=== PATIENT | female | born 1980 | race Caucasian/White ===

== ENCOUNTER 2018-10-28 10:49 | Outpatient (CLI) | payer OTHER, SELFPAY ==
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
== END 2018-10-28 11:09 ==
PROVIDERS: PCP Nurse Practitioner Adult Health; Visit Provider Podiatrist
DX: M79.672 Pain in left foot (principal)
CPT/HCPCS: 73630

== ENCOUNTER 2018-11-19 10:03 | Outpatient (CLI) | payer OTHER, SELFPAY ==
--- NOTE | 2018-11-19 09:37 | DI.RAD_ITS ---
SYMPTOM/DIAGNOSIS: RT MEDIAL AND ANTERIOR KNEE PAIN RIGHT KNEE: 11/19 Three views were obtained. No bony or soft tissue abnormality seen. Merchant view shows normal patellofemoral alignment.
== END 2018-11-19 10:23 ==
PROVIDERS: PCP Nurse Practitioner Adult Health; Visit Provider Student in an Organized Health Care Education/Training Program
DX: M25.561 Pain in right knee (principal)
CPT/HCPCS: 73562

== ENCOUNTER 2018-11-26 01:17 | Outpatient (CLI) | payer OTHER, SELFPAY ==
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
== END 2018-11-26 01:37 ==
PROVIDERS: PCP Nurse Practitioner Adult Health; Visit Provider Student in an Organized Health Care Education/Training Program
DX: M25.561 Pain in right knee (principal); M25.461 Effusion, right knee
CPT/HCPCS: 73721

== ENCOUNTER 2018-12-31 17:02 | Outpatient (REF) | payer OTHER, SELFPAY ==
--- NOTE | 2018-12-31 14:50 | PAPFT_PTH ---
PATIENT: Tania Krause LOC: [facility] U#:[id number] AGE/SX: 38/F ROOM: RE12/31/[address]: Ángela Richard NP : 1980 BED: DIS: 12/31/2018 SPEC #: [id number] RECD: 12/31/18 18:19 STATUS: SAL REMaximiliano #: [id number] ELIOT: 12/31/18 14:[address]: Ángela Richard NP DEPT: [facility] Cytology RECD BY: Flory Morales ENTERED: 12/31/18 18:19 SP TYPE: PAPFT OTHR DR: Tania Perez APRN Tissues: 1 - CX/ENDOCX FOR PAP SMEARS Procedures: PAP THIN PREP/UVM Screening HPV DNA PROBE Comments: [id number]
== END 2018-12-31 17:22 ==
LOC: LBN 17:02
PROVIDERS: PCP Nurse Practitioner Adult Health; Visit Provider Nurse Practitioner Women's Health
DX: Z12.4 Encounter for screening for malignant neoplasm of cervix (principal); Z11.51 Encounter for screening for human papillomavirus (HPV)
CPT/HCPCS: 88142; 87624

== ENCOUNTER 2019-03-19 13:18 | Outpatient (CLI) | payer OTHER, SELFPAY ==
[2019-03-19 13:19] VITALS: BP 120/80; PULSE 66; RESP 16; TEMP 37.2; O2SAT 100
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
[2019-03-19 14:15] VITALS: PULSE 70; O2SAT 100
[2019-03-19] MEDS: Omnipaque 240 MG/ML 50 ML BTL IJ (14:27)
[2019-03-19] MEDS: Bupivacaine 0.5% Pres-Free 10 ML VIAL IJ (14:28)
--- NOTE | 2019-03-19 15:12 | DI.RAD_ITS ---
EXAM: XR PAIN CLINIC FLUORO JOINT IN CLINICAL HISTORY: DX: Osteoarthritis of right knee TECHNIQUE: Fluoroscopy was provided for the referring physician for guidance with performing injecti on procedure. COMPARISON: No exams were available for comparison FINDINGS: Please see procedure note for details. Fluoro Time: 26.4 seconds
== END 2019-03-19 13:38 ==
PROVIDERS: PCP Nurse Practitioner Adult Health; Visit Provider Internal Medicine
DX: M25.561 Pain in right knee (principal); M22.2X1 Patellofemoral disorders, right knee
CPT/HCPCS: 64640 ×3; 77002; Q9967

== ENCOUNTER → 2019-04-16 09:48 | Outpatient (CLI) | payer OTHER, SELFPAY ==
[2019-04-16 09:57] VITALS: BP 115/79; PULSE 81; RESP 16; TEMP 37.2; O2SAT 98
--- NOTE | 2019-04-16 10:03 | PDOC.PAIN ---
Pain Clinic Procedure Note Procedure Note Procedure Note: Right Knee Radiofrequency with Coolief Machine PROCEDURE NOTE Date of Service: April 16, 2019 Patient: FRANKLIN MORAN Provider: Chaitanya Ferreira MD Pre Operative Diagnosis: patellofemoral syndrome of left knee Post Operative Diagnosis: same as above PROCEDURE: 1. Superolateral genicular branch from the vastus lateralis 2. Superomedial genicular branch from the vastus medialis 3. Inferomedial genicular branch from the saphenous nerve FRANKLIN MORAN was brought into brought to the procedure room and placed on the exam table in a comfortable supine position. The place for needle placement was obtained by manual palpation with radiographic confirmation. The sterile field was prepared by chloroprep and sterile drapes. Local anesthesia superficial and deep was provided by local infiltration of ~6cc of 1% lidocaine. A 17g 50 mm radiofrequency introducer needle with a 4mm active tip was placed overlying the [right/left] knee joint and using fluoroscopic guidance the needle was advanced to a bony endpoint on the superiolateral portion of the femoral condyle of the right knee. A second needle was advanced to a bony endpoint on the superiomedial portion of the femoral condyle. A third needle was then placed over the inferiomedial portion of the tibial condyle until a bony endpoint was met. Attempted aspiration yielded no blood. Lateral x-ray views showed all the needles at 50% depth of the femur and tibia. Motor stimulation was tested ad 2.0 volts with no leg movement. Images were saved in AP and lateral. 2cc of 2% lidocaine was slowly injected at each site. Then a radiofrequency ablation of each of the geniculate nerves were done at 80 degrees Celsius for 2 minutes and 30 seconds each. Post lesioning, a mixture of 40mg/ml of depomedrol mixed with 2cc of 0.5% Bupivocaine was injected, ~1cc of solution at each injection site. The needles were withdrawn. POST PROCEDURE EVALUATION: patient tolerated procedure well. Needed total of 1mg of IV Versed and 75mcg of IV Fentanyl. Follow up plans and appointments were discussed with the FRANKLIN . Post procedure instruction was given as documented in nursing documentation and having met discharge criteria, FRANKLIN was discharged from the [facility]. COMMENTS: No complications. F/U with our office as needed. I personally performed this entire procedure. Chaitanya Ferreira MD Attending Physician
[2019-04-16] MEDS: Lactated Ringers 1,000 ML 80 ML IV (10:15)
[2019-04-16] MEDS: Midazolam 2 MG/2 ML VIAL IVP (10:28)
[2019-04-16] MEDS: fentaNYL 100 MCG/2 ML VIAL IVP ×3 (10:28→10:54)
[2019-04-16 10:56] VITALS: BP 121/85; PULSE 76; RESP 18; O2SAT 100
--- NOTE | 2019-04-16 11:03 | DI.RAD_ITS ---
EXAM: XR PAIN CLINIC FLUORO JOINT IN CLINICAL HISTORY: Dx: Right patellofemoral syndrome TECHNIQUE: Realtime digital imaging was performed. Fluoro time: 35.3 sec, 1.67 mGy COMPARISON: No exams were available for comparison FINDINGS: Fluoroscopy was utilized by Dr. Ferreira during the performance of a genicular radiofrequency ablation. Pl ease refer to the procedure report for complete details.
[2019-04-16] MEDS: Bupivacaine 0.5% Pres-Free 10 ML VIAL IJ (11:15)
[2019-04-16] MEDS: Lidocaine 2% Pres-Free 5 ML VIAL IJ (11:16)
[2019-04-16] MEDS: methylPREDNISolone ACETATE 40 MG/ML VIAL IM (11:17)
== END ==
PROVIDERS: PCP Nurse Practitioner Adult Health; Visit Provider Internal Medicine
DX: M22.2X1 Patellofemoral disorders, right knee (principal)
CPT/HCPCS: 64640; 77002; J1030; J2250; J3010

== ENCOUNTER 2019-11-01 02:06 | Outpatient (CLI) | payer OTHER, SELFPAY ==
[2019-11-01 09:49] LABS: ALT 63 U/L (14-59); AST 44 U/L (15-37); Albumin 3.9 g/dL (3.4-5.0); Alkaline Phosphatase 108 U/L (46-116); Anion Gap 7.6 mmol/L (3-11); BUN 7 mg/dL (7-18); Bilirubin, Total 0.3 mg/dL (0.2-1.0); CO2 28.4 mmol/L (21.0-32.0); CREATININE 0.76 mg/dL (0.55-1.02); Calcium 8.9 mg/dL (8.5-10.1); Chloride 105 mmol/L (98-107); Glucose 97 mg/dL (74-106); Potassium 4.3 mmol/L (3.5-5.1); Sodium 141 mmol/L (136-145); TSH (W/Ref FT4) 1.51 uIU/mL (0.36-3.74); Total Protein 6.8 g/dL (6.4-8.2)
[2019-11-04 05:21] LABS: Vitamin D 25 Total 47.5 ng/ml (30-100)
== END 2019-11-01 02:26 ==
PROVIDERS: PCP Nurse Practitioner Adult Health; Visit Provider Nurse Practitioner Adult Health
DX: G43.909 Migraine, unspecified, not intractable, without status migrainosus (principal); Z51.81 Encounter for therapeutic drug level monitoring; F32.9 Major depressive disorder, single episode, unspecified
CPT/HCPCS: 36415; 80053; 82306; 84443

== ENCOUNTER 2019-12-26 04:40 | Outpatient (CLI) | payer OTHER, SELFPAY ==
[2019-12-26 15:20] LABS: ALT 21 U/L (14-59); AST 14 U/L (15-37); Albumin 3.6 g/dL (3.4-5.0); Alkaline Phosphatase 79 U/L (46-116); Bilirubin, Direct 0.07 mg/dL (0.00-0.20); Bilirubin, Total 0.2 mg/dL (0.2-1.0); Total Protein 6.7 g/dL (6.4-8.2)
== END 2019-12-26 05:00 ==
PROVIDERS: PCP Nurse Practitioner Adult Health; Visit Provider Nurse Practitioner Adult Health
DX: R74.0 Nonspecific elevation of levels of transaminase and lactic acid dehydrogenase [LDH] (principal)
CPT/HCPCS: 36415; 80076

== ENCOUNTER 2020-01-16 09:47 | Outpatient (CLI) | payer OTHER, SELFPAY ==
--- NOTE | 2020-01-16 06:00 | DI.RAD_ITS ---
EXAM: XR PAIN CLINIC FLUORO JOINT IN CLINICAL HISTORY: Dx:Osteoarthritis of Right knee TECHNIQUE: 2D and realtime digital imaging was performed. CONTRAST MATERIAL: Refer to procedure report. COMPARISON: No exams were available for comparison FINDINGS: Fluoroscopy was provided for Dr. Bang during the performance of a radiofrequency ablation. Please r efer to the procedure report for complete details. Fluoro time: 81 seconds IMPRESSION:
[2020-01-16 10:09] VITALS: BP 117/79; PULSE 79; RESP 16; TEMP 37.3; O2SAT 97
[2020-01-16] MEDS: Lactated Ringers 1,000 ML 80 ML IV (10:47)
[2020-01-16] MEDS: fentaNYL 100 MCG/2 ML VIAL IVP ×3 (10:52→11:12)
[2020-01-16] MEDS: Midazolam 2 MG/2 ML VIAL IVP (10:52)
[2020-01-16] MEDS: Lidocaine 2% Pres-Free 5 ML VIAL IJ (11:31)
[2020-01-16] MEDS: Bupivacaine 0.5% Pres-Free 10 ML VIAL IJ (11:31)
[2020-01-16] MEDS: Lidocaine 1% Pres-Free 5 ML VIAL IJ (11:32)
[2020-01-16] MEDS: methylPREDNISolone ACETATE 40 MG/ML VIAL IJ (11:32)
[2020-01-16 11:33] VITALS: BP 114/78; PULSE 60; RESP 14; O2SAT 100
--- NOTE | 2020-01-16 11:40 | PDOC.PAIN_ITS ---
Pain Clinic Procedure Note Procedure Note Procedure Note: RIGHT GENICULAR NERVE RADIOFREQUENCY ABLATION WITH THE COOLIEF MACHINE Date of Service: January 16, 2020 Patient: FRANKLIN MORAN Provider: Anup Bang DO, MPH Pre-operative diagnosis: Right knee osteoarthritis Post-operative diagnosis: Same COMMENTS: Previous Genicular nerve block to the RIGHT knee. FRANKLIN MORAN has been referred to the [facility] for RIGHT genicular nerve radiofrequency ablation. FRANKLIN was interviewed and the medical record reviewed. There were no medical, pharmacologic, radiographic or other structural contraindications to attempting fluoroscopically guided RIGHT genicular nerve radiofrequency ablation. Risks and potential side effects as well as potential benefit of the procedure were reviewed with FRANKLIN MORAN , and HER voiced concerns were addressed. After I believed that the patient was completely informed, the printed consent form was signed. Standard time-out procedure was performed. FRANKLIN was placed in the supine position on the fluoroscopy table and automated blood pressure cuff and pulse oximeter applied. The skin entry points for approaching RIGHT superolateral genicular nerve, the superomedial genicular nerve, the suprapatellar genicular nerve, and the inferomedial genicular were identified under the most advantageous fluoroscopic view and marked. Following thorough Chlorhexadine preparation of the skin and draping, 1% lidocaine infiltration of the skin entry point and subcutaneous tissues was accomplished using a 1.5 25G needle. Next, the 5 cm 18G RF Cannula with a 10 mm active tip was advanced to os at the location of the specific nerve roots (4) using fluoroscopic guidance. Next, sensory and motor testing was performed and no abnormal findings were found. Next, 1 cc of 2% Lidocaine was injected at each site. The lesion was then created with 80 degrees C for 90 seconds. Each cannula was advanced until the tip reached the posterior aspect of the bone shaft. 1/4 cc of Depomedrol (40 mg/cc) was then injected at each site followed by 1 cc of 0.5% Bupivacaine as the needle was withdrawn. The needles were removed without difficulty. Duane vital signs were stable throughout the procedure and were as recorded in the docflowsheet by the nursing staff. If given, dosages of intravenous drugs for anxiolysis and analgesia were documented in MAR. Follow up plans and appointments were discussed with the FRANKLIN MORAN . Post procedure instruction was given as documented in nursing documentation and having met discharge criteria, FRANKLIN was discharged from the [facility]. COMMENTS: No complications. Cantu WJ1, Karen SJ, Tk JG, Chaya JG, Rollins REMY, Park PH, Bess JW. Radiofrequency treatment relieves chronic knee osteoarthritis pain: a double-blind randomized controlled trial. Pain. 2010;152(3):481-7. doi: 10.1016/j.pain.2010.09.029. Omayra S1, Sav ON2, Thad Y3, ?zl?leighton P2, Russel U1, Walter ?m?rl? I. Which one is more effective for the clinical treatment of chronic pain in knee osteoarthritis: radiofrequency neurotomy of the genicular nerves or intra- articular injection? Int J Rheum Dis. 2016 Nov 12. F/U with our office as needed. If the procedure gives her at least 6 months of relief, it can be repeated. I personally performed this entire procedure. Anup Bang DO, MPH Pain Management Attending Physician
[2020-01-16 11:41] VITALS: BP 87/52; PULSE 50
[2020-01-16 11:52] VITALS: BP 110/66; PULSE 85
== END 2020-01-16 10:07 ==
PROVIDERS: PCP Nurse Practitioner Adult Health; Visit Provider Preventive Medicine Occupational Medicine
DX: M25.561 Pain in right knee (principal); M17.11 Unilateral primary osteoarthritis, right knee
CPT/HCPCS: 64624; 77002; J1030; J2250; J3010

== ENCOUNTER 2020-02-17 02:31 | Outpatient (CLI) | payer OTHER, SELFPAY ==
[2020-02-17 12:47] LABS: Vitamin D 25 Total 33.6 ng/ml (30-100)
[2020-02-20 10:17] LABS: Riboflavin (Vitamin B2), P 12 mcg/L (1-19)
== END 2020-02-17 02:51 ==
PROVIDERS: PCP Nurse Practitioner Adult Health; Visit Provider Internal Medicine Gastroenterology
DX: R10.13 Epigastric pain (principal)
CPT/HCPCS: 36415; 82306; 84252

== ENCOUNTER 2020-02-21 04:25 | Outpatient (CLI) | payer OTHER, SELFPAY ==
--- NOTE | 2020-02-21 | DI.RAD_ITS ---
EXAM: RF UGI SM BOWEL SERIES CLINICAL HISTORY: ABD PAIN,REFLUX,? DIVERTICULOSIS,R10.30 TECHNIQUE: 2D and realtime digital imaging was performed. CONTRAST MATERIAL: Oral barium contrast was administered. COMPARISON: No exams were available for comparison FINDINGS: Initial plain film of the abdomen reveals normal stool and air pattern. No abnormal calcifications ar e seen. There are surgical clips in the right upper quadrant of the abdomen likely from prior cholecy stectomy. Esophagus: The esophagus is patent with no evidence for erosions, fold thickening, strictures, or ma sses. With regards to the motility, there is a normal primary stripping wave. No tertiary contraction s were noted. There is no hiatal hernia or gastroesophageal reflux. . . . Stomach: The stomach shows no gastric fold thickening, erosions, or masses. . . . Duodenal Bulb: Shows no gastric fold thickening, erosions, or masses. . . . Small bowel: The small bowel demonstrates no structural abnormalities including stricture, dilatation , adhesion, or mass. No evidence of small bowel diverticula. The terminal ileum is identified and a ppears unremarkable. .. . IMPRESSION: Normal upper GI series with small bowel follow through. . . .
[2020-02-21] MEDS: Barium Sulfate 60% W/V 355 ML BTL PO (10:14)
== END 2020-02-21 04:45 ==
PROVIDERS: PCP Nurse Practitioner Adult Health; Visit Provider Internal Medicine Gastroenterology
DX: R10.30 Lower abdominal pain, unspecified (principal)
CPT/HCPCS: 74248; 74246; J3490

== ENCOUNTER 2020-03-23 11:49 | Outpatient (RCR) | payer OTHER, SELFPAY ==
[2020-03-23] MEDS: Ketorolac 60 MG/2 ML VIAL IM (12:19)
== END 2020-04-02 23:59 | disposition home or self-care (01) ==
LOC: INF 11:49
PROVIDERS: PCP Nurse Practitioner Adult Health; Visit Provider Nurse Practitioner Adult Health
DX: G43.009 Migraine without aura, not intractable, without status migrainosus (principal)
CPT/HCPCS: 96372; J1885

== ENCOUNTER 2020-04-24 11:28 | Outpatient (CLI) | payer OTHER, BC, SELFPAY ==
--- NOTE | 2020-04-24 11:15 | DI.RAD_ITS ---
EXAM: XR ANKLE LT COMPLETE CLINICAL HISTORY: LEFT ANKLE INJURY TECHNIQUE: 2D digital imaging was performed. COMPARISON: No exams were available for comparison FINDINGS: BONES: No acute fracture is present. No bony destructive lesion is seen. There is a small rounded oss eous density at the tip of the lateral malleolus of indeterminate age. JOINTS:The ankle mortise is normally aligned. SOFT TISSUE: Minimal soft tissue swelling about the ankle. IMPRESSION: Rounded density at the tip of the lateral malleolus of indeterminate age. This may represent an avul sed fracture. There is mild soft tissue swelling about the ankle laterally. DATA REPOSITORY: RADIATION DOSE DELIVERED:
== END 2020-04-24 11:48 ==
PROVIDERS: PCP Nurse Practitioner Adult Health; Referring Provider Nurse Practitioner Adult Health; Visit Provider Student in an Organized Health Care Education/Training Program
DX: M25.572 Pain in left ankle and joints of left foot (principal); S93.492A Sprain of other ligament of left ankle, initial encounter
CPT/HCPCS: 73610

== ENCOUNTER 2020-05-11 22:37 | Outpatient (CLI) | payer OTHER, BC, SELFPAY ==
--- NOTE | 2020-05-11 14:15 | DI.RAD_ITS ---
EXAM: XR ANKLE LT COMPLETE CLINICAL HISTORY: eval continued left ankle pain, pain over fibula,,inversion sprain TECHNIQUE: 2D digital imaging was performed. COMPARISON: CR XR ANKLE LT COMPLETE from 04/24/2020 FINDINGS: There has been no change in appearance of the left ankle compared to the prior examination. There is no soft tissue swelling. No acute or healing fracture or dislocation is identified. No radiopaque foreign bodies are appreciated. IMPRESSION: No change in appearance of the left ankle compared to 04/24/2020. If there is concern for internal de rangement, an MRI should be considered. DATA REPOSITORY: RADIATION DOSE DELIVERED:
== END 2020-05-11 22:38 | disposition home or self-care (01) ==
LOC: DI 22:40
PROVIDERS: PCP Nurse Practitioner Adult Health; Visit Provider Student in an Organized Health Care Education/Training Program
DX: M25.572 Pain in left ankle and joints of left foot (principal); S93.492A Sprain of other ligament of left ankle, initial encounter
CPT/HCPCS: 73610

== ENCOUNTER 2020-05-21 00:57 | Outpatient (CLI) | payer OTHER, BC, SELFPAY ==
--- NOTE | 2020-05-21 15:05 | DI.MRI_ITS ---
EXAM: MR LOWER JOINT LT WO CLINICAL HISTORY: continued pain over distal fibula, ?nondisplaced FX,INVERSION SPRAIN, TECHNIQUE: Multiplanar multisequence MRI was performed without intravenous contrast. COMPARISON: No exams were available for comparison FINDINGS: SKIN: No evidence of ulcer nor subcutaneous tract. There is some increased signal in the plantar pelon l fat pad. BONES/JOINTS: There is significant bone edema in the medial half of the talus as well as the subjacen t sustentacular talus. Consistent with prominent bone contusions and there is a suggestion of a hip is of subtle microtrabecular fracture lines in the talus. There is no signal abnormality in the taylor rity of the talar dome with the exception of the most lateral aspect the talar dome where there is a tiny focus of subarticular signal abnormality and there is also focal bone contusion subarticular asp ect of the mid tibial plateau formed, anteriorly. There is mild increased signal in the tip of the m edial malleolus and tip of the lateral malleolus. There is no abnormal signal in the posterior malle olus. No intraosseous signal abnormality in the calcaneus, cuboid, navicular, and cuneiform bones no r in the metatarsal bases. There is no osseous tarsal coalition evident. There is a moderate-sized ankle joint effusion which extends posteriorly to the musculotendinous junc tion of the flexor hallucis longus. There is a small para-articular ganglion at the dorsal aspect of the articulation between the navicular bone and medial cuneiform. LIGAMENTS: There is mild attenuation of the anterior talofibular ligament. There is also an element of attenuation of the calcaneal fibular ligament. The posterior talofibular ligament is intact. On the medial aspect of the ankle there is more than typical signal and within the deep deltoid ligament as well as intraosseous subarticular signal in the medial talus at this level. SINUS TARSI: Interosseous ligament is intact. There is no loss of the normal fat signal in this space . Suspensory ligament: Intact MUSCULOTENDINOUS STRUCTURES: Achilles tendon: Unremarkable. No evidence of tear nor tendinitis/tendinosis. No abnormal signal in the pre Achilles fat triangle. Plantar fascia: Unremarkable. No evidence of tear, abnormal thickening, nor abnormal nodularity. Anterior Extensor tendons: Unremarkable. Medial Tendons: Posterior Tibialis: No tear however there is tenosynovitis Flexor Digitorum longus: No tear but there is also tenosynovitis Flexor Hallicus longus: Fluid around the musculotendinous junction is in continuity with the ankle govind int effusion. There is no evidence of tear nor displacement of the flexor hallucis. Lateral Tendons: Peroneus longus: No tear. Mild tenosynovitis. Peroneus brevis:No tear. Mild tenosynovitis. IMPRESSION: 1. There is prominent intraosseous signal abnormality in the talus and sustentacular talus as describ ed above consistent with bone contusion and possible stress fractures. No displacement. There is al so mild bone edema in the tips of both lateral and medial malleolus as well is in the most lateral as pect the talar dome and most anterior aspect of the tibial plafond. No true osteochondral defect chris dent at this time. 2. There is attenuation of the anterior talofibular and calcaneofibular ligaments consistent with par tial tearing. There is also more than typical signal evident within the deltoid ligament. There is, however, no widening of the ankle mortise evident. 3. There is an ankle joint effusion-moderate size. This extends posteriorly to the region of the fle xor hallucis longus musculotendinous junction. There is also mild tenosynovitis of all of the tendon s on both sides of the ankle joint but no tendon tears evident. 4. The Achilles tendon is unremarkable. Plantar fascia is also unremarkable although there does zarina ear to be some mild increased signal in the plantar fat pad subjacent to the plantar fascia. There i s no inferior calcaneal spur and no intraosseous edema within the calcaneus. 5. There is no incidental osseous tarsal coalition DATA REPOSITORY:
== END 2020-05-21 00:58 ==
LOC: DI 00:57
PROVIDERS: PCP Nurse Practitioner Adult Health; Visit Provider Student in an Organized Health Care Education/Training Program
DX: S93.492A Sprain of other ligament of left ankle, initial encounter (principal); S90.02XA Contusion of left ankle, initial encounter; M25.472 Effusion, left ankle
CPT/HCPCS: 73721

== ENCOUNTER 2020-08-28 02:21 | Outpatient (CLI) | payer OTHER, BC, SELFPAY ==
[2020-08-28 14:55] LABS: CREATININE 0.7 mg/dL (0.55-1.02)
== END 2020-08-28 02:22 | disposition home or self-care (01) ==
LOC: LBO 02:21
PROVIDERS: PCP Nurse Practitioner Adult Health; Visit Provider Psychiatry & Neurology Neurology
DX: K58.9 Irritable bowel syndrome, unspecified (principal); K90.0 Celiac disease; K31.84 Gastroparesis; E73.9 Lactose intolerance, unspecified
CPT/HCPCS: 36415; 82565

== ENCOUNTER 2020-09-17 00:40 | Outpatient (CLI) | payer OTHER, BC, SELFPAY ==
--- NOTE | 2020-09-17 11:00 | DI.MRI_ITS ---
Exam(s) MR BRAIN WO/W EXAM: MR BRAIN WO/W CLINICAL HISTORY: CHRONIC MIGRAINE,G43.709,FAMILY H/O BRAIN TUMOR,Z84.89 TECHNIQUE: Multiplanar multisequence MRI of the brain was performed. Both noninfused and contrast i nfused sequences were performed. IV Contrast injected was 12 cc Dotarem. COMPARISON: No exams were available for comparison FINDINGS: CEREBRAL PARENCHYMA: No evidence of intracranial hemorrhage, mass effect nor shift of midline structu re. No evidence of cerebellar tonsillar ectopia No extraaxial fluid collections. Ventricles are not enlarged nor shifted. There is no significant focal signal abnormality in the cerebellar hemispheres nor within the gardenia, m idbrain, and thalami. There is no abnormal signal abnormality in the periventricular white matter. No white matter signal to suggest demyelinating plaques in this 39-year-old patient. No abnormal signal evident on diffusion imaging. There are no ring enhancing lesions in the brain. There is no abnormal meningeal enhancement. PITUITARY GLAND: No mass nor parasellar abnormality. No obvious abnormality in the cavernous sinuses. FLOW VOIDS: The expected flow void are noted. No evidence of obvious aneurysm nor obvious vascular ma lformation. PARANASAL SINUSES: The visualized paranasal sinuses appear unremarkable. ORBITS: No obvious abnormal findings. IMPRESSION: 1. No significant intracranial findings on this MRI scan of the brain. 2. No abnormal enhancing intracranial finding. 3. No evidence of cerebellar tonsillar ectopia. DATA REPOSITORY:
[2020-09-17] MEDS: Normal Saline Flush 10 ML SYR IVP (11:17)
[2020-09-17] MEDS: Gadoterate meglumine 20 ML VIAL 12 ML IVP (11:18)
== END 2020-09-17 01:00 ==
PROVIDERS: PCP Nurse Practitioner Adult Health; Visit Provider Psychiatry & Neurology Neurology
DX: G43.709 Chronic migraine without aura, not intractable, without status migrainosus (principal); Z80.8 Family history of malignant neoplasm of other organs or systems
CPT/HCPCS: 70553

== ENCOUNTER 2020-12-14 09:30 | Outpatient (RCR) | payer OTHER, SELFPAY ==
[2020-12-14] MEDS: Ketorolac 60 MG/2 ML VIAL IM (10:47)
== END 2020-12-31 23:59 | disposition home or self-care (01) ==
LOC: INF 09:30
PROVIDERS: PCP Nurse Practitioner Adult Health; Visit Provider Nurse Practitioner Adult Health
DX: G43.909 Migraine, unspecified, not intractable, without status migrainosus (principal)
CPT/HCPCS: 96372; J1885

== ENCOUNTER 2020-12-16 11:17 | Outpatient (CLI) | payer OTHER, SELFPAY ==
--- NOTE | 2020-12-16 15:15 | DI.RAD_ITS ---
Exam(s) XR ANKLE LT COMPLETE EXAM: XR ANKLE LT COMPLETE CLINICAL HISTORY: fall and twist of ankle with pain, inversion sprain, lt ankle, S93.402A TECHNIQUE: 2D digital imaging was performed. COMPARISON: CR XR ANKLE LT COMPLETE from 05/11/2020 FINDINGS: BONES: No acute fracture is present. No bony destructive lesion is seen. JOINTS:The ankle mortise is normally aligned. SOFT TISSUE: Normal. IMPRESSION: No acute fracture or dislocation. DATA REPOSITORY: RADIATION DOSE DELIVERED:
== END 2020-12-16 11:37 ==
PROVIDERS: PCP Nurse Practitioner Adult Health; Visit Provider Student in an Organized Health Care Education/Training Program
DX: S93.402A Sprain of unspecified ligament of left ankle, initial encounter (principal); X58.XXXA Exposure to other specified factors, initial encounter; W19.XXXA Unspecified fall, initial encounter
CPT/HCPCS: 73610

== ENCOUNTER 2021-02-17 10:23 | Outpatient (RCR) | payer OTHER, SELFPAY ==
[2021-02-17] MEDS: Ketorolac 60 MG/2 ML VIAL IM (11:12)
== END 2021-03-02 23:59 | disposition home or self-care (01) ==
LOC: INF 10:23
PROVIDERS: PCP Nurse Practitioner Adult Health; Visit Provider Nurse Practitioner Adult Health
DX: G43.909 Migraine, unspecified, not intractable, without status migrainosus (principal)
CPT/HCPCS: 96372; J1885

== ENCOUNTER 2021-05-09 10:07 | Emergency (ER) | payer OTHER, SELFPAY ==
[2021-05-09 10:13] VITALS: BP 115/74; PULSE 80; RESP 16; TEMP 37.2; O2SAT 100
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
[2021-05-09] MEDS: Ketorolac 30 MG/ML VIAL IM (10:46)
[2021-05-09] MEDS: Diclofenac 1% Gel 100 GM TUBE TP (10:48)
--- NOTE | 2021-05-09 11:14 | DI.VRAD_ITS ---
PROCEDURE INFORMATION: Exam: XR Right Ribs Exam date and time: 05/09/2021 10:41 AM Age: 40 years old Clinical indication: Other: Pain, injury, ttp anterior rib 5-7 TECHNIQUE: Imaging protocol: XR Right ribs. Views: 2 views. COMPARISON: RF UGI SM BOWEL SERIES 02/21/2020 9:03 AM FINDINGS: Bones/joints: No displaced rib fractures identified. Soft tissues: Unremarkable. IMPRESSION: No displaced right-sided rib fractures identified. PROCEDURE INFORMATION: Exam: XR Chest Exam date and time: 05/09/2021 10:41 AM Age: 40 years old Clinical indication: Other: Pain, injury, ttp anterior rib 5-7 TECHNIQUE: Imaging protocol: XR of the chest. Views: 2 views. COMPARISON: RF UGI SM BOWEL SERIES 02/21/2020 9:03 AM FINDINGS: Lungs: The lung parenchyma is clear. Pleural spaces: No pneumothorax. No pleural effusion. Heart/Mediastinum: The cardiomediastinal silhouette is within normal limits. Bones/joints: Unremarkable. Intraperitoneal space: Surgical clips in the right upper quadrant noted. IMPRESSION: No acute cardiopulmonary abnormality identified. Dictated and Authenticated by: Anup Becerril MD. Ordering:JANI Salazar MD
== END 2021-05-09 11:46 | disposition home or self-care (01) ==
PROVIDERS: Emergency Provider Student in an Organized Health Care Education/Training Program; PCP Nurse Practitioner Adult Health
DX: S20.211A Contusion of right front wall of thorax, initial encounter (principal); W21.89XA Striking against or struck by other sports equipment, initial encounter
CPT/HCPCS: 96372; 99284; 71046; 71100; 99283; J1885

== ENCOUNTER 2021-05-23 10:44 | Outpatient (RCR) | payer OTHER, SELFPAY ==
[2021-05-23] MEDS: Ketorolac 60 MG/2 ML VIAL IM (11:13)
== END 2021-05-31 23:59 | disposition home or self-care (01) ==
LOC: INF 10:44
PROVIDERS: PCP Nurse Practitioner Adult Health; Visit Provider Nurse Practitioner Adult Health
DX: G43.909 Migraine, unspecified, not intractable, without status migrainosus (principal)
CPT/HCPCS: 96372; J1885

== ENCOUNTER 2021-09-08 13:03 | Outpatient (CLI) | payer OTHER, BC, SELFPAY ==
[2021-09-08 13:42] VITALS: BP 110/77; PULSE 76; RESP 20; TEMP 36.9; O2SAT 100
[2021-09-08] MEDS: fentaNYL 100 MCG/2 ML VIAL IVP ×2 (14:28→14:38)
[2021-09-08] MEDS: Midazolam 2 MG/2 ML VIAL IVP (14:28)
[2021-09-08 14:52] VITALS: BP 123/80; PULSE 83; RESP 18; O2SAT 100
--- NOTE | 2021-09-08 14:55 | DI.RAD_ITS ---
Exam(s) XR PAIN CLINIC FLUORO JOINT IN EXAM: XR PAIN CLINIC FLUORO JOINT IN CLINICAL HISTORY: Dx: Osteoarthritis of the knee TECHNIQUE: 2D and realtime digital imaging was performed. Radiologist not present. CONTRAST MATERIAL: None. COMPARISON: No exams were available for comparison FINDINGS: Fluoroscopy was provided for pain management therapy. Please refer to procedure report or details. Cumulative dose: Ka,r=1.83 mGy IMPRESSION: RADIATION DOSE DELIVERED:
[2021-09-08] MEDS: Lactated Ringers 500 ML 80 ML IV (15:04)
--- NOTE | 2021-09-08 15:07 | PDOC.PAIN_ITS ---
Pain Clinic Procedure Note Procedure Note Procedure Note: RIGHT GENICULAR NERVE RADIOFREQUENCY ABLATION WITH THE COOLIEF MACHINE Date of Service: September 08, 2021 Patient: Tania Krause Provider: Anup Bang DO, MPH Pre-operative diagnosis: Right knee pain Post-operative diagnosis: Same Pre-procedure pain VAS = 9/10 COMMENTS: Previous Genicular nerve Ablation to the RIGHT knee in 2019 with excellent results >6 months. Tania Krause has been referred to the [facility] for RIGHT genicular nerve radiofrequency ablation. Tania was interviewed and the medical record reviewed. There were no medical, pharmacologic, radiographic or other structural contraindications to attempting fluoroscopically guided RIGHT genicular nerve radiofrequency ablation. Risks and potential side effects as well as potential benefit of the procedure were reviewed with Tania Krause , and HER voiced concerns were addressed. After I believed that the patient was completely informed, the printed consent form was signed. Standard time-out procedure was performed. Tania was placed in the supine position on the fluoroscopy table and automated blood pressure cuff and pulse oximeter applied. The skin entry points for approaching RIGHT superolateral genicular nerve, the superomedial genicular nerve and the inferomedial genicular was identified under the most advantageous fluoroscopic view and marked. Following thorough Chlorhexadine preparation of the skin and draping, 1% lidocaine infiltration of the skin entry point and subcutaneous tissues was accomplished using a 1.5 25G needle. Next, the 10 cm 18G RF Cannula with a 10 mm active tip was advanced to os at the location of the specific nerve roots (3) using fluoroscopic guidance. Next, sensory and motor testing was performed and no abnormal findings were found. Next, 1 cc of 2% Lidocaine was injected at each site. The lesion was then created with 80 degrees C for 90 seconds. Each needle was advance 1 cm and the lesion was completed again. Each cannula was advanced until the tip reached the posterior aspect of the bone shaft. 1/3 cc of Depomedrol (40 mg/cc) was then injected at each site followed by 2 cc of 0.5% Bupivacaine as the needle was withdrawn. The needles were removed without difficulty. Tania's vital signs were stable throughout the procedure and were as recorded in the docflowsheet by the nursing staff. If given, dosages of intravenous drugs for anxiolysis and analgesia were documented in MAR. Follow up plans and appointments were discussed with the Tania Krause . Post procedure instruction was given as documented in nursing documentation and having met discharge criteria, Tania was discharged from the [facility]. COMMENTS: No complications. Post-procedure pain VAS = 5/10. Pepe WJ1, Karen SJ, Tk JG, Chaya JG, Ayo REMY, Shania PH, Shahriar JW. Radiofrequency treatment relieves chronic knee osteoarthritis pain: a double-blind randomized controlled trial. Pain. 2011 Jun;152(3):481-7. doi: 10.1016/j.pain.2010.09.029. Omayra S1, Sav ON2, Thad Y3, ?zl?lerden P2, Russel U1, Walter ?m?rl? I. Which one is more effective for the clinical treatment of chronic pain in knee osteoarthritis: radiofrequency neurotomy of the genicular nerves or intra- articular injection? Int J Rheum Dis. 2016 Nov 12. F/U with our office as needed. I personally performed this entire procedure. Anup Bang DO, MPH [facility]-Pain Management [facility]
[2021-09-08] MEDS: methylPREDNISolone ACETATE 40 MG/ML VIAL IJ (15:30)
[2021-09-08] MEDS: Lidocaine 2% Multi-Dose 20 ML VIAL IJ (15:30)
[2021-09-08] MEDS: Bupivacaine 0.5% Pres-Free 30 ML VIAL IJ (15:31)
== END 2021-09-08 13:04 | disposition home or self-care (01) ==
LOC: PC 13:06
PROVIDERS: PCP Nurse Practitioner Adult Health; Visit Provider Preventive Medicine Occupational Medicine
DX: M25.561 Pain in right knee (principal)
CPT/HCPCS: 64624; 77002; J1030; J2250; J3010; J3490